=== PATIENT | female | born 1975 | race Caucasian/White ===

== ENCOUNTER 2022-07-14 10:29 | Emergency (ER) | payer OTHER ==
[2022-07-14 10:41] VITALS: RESP 18; BMI 27.4
[2022-07-14] MEDS ORDERED: ACETAMINOPHEN 1000 MG/100 ML BAG IVPB ONE (11:32)
[2022-07-14] MEDS ORDERED: ONDANSETRON 4 MG/2 ML VIAL IVPUSH ONE (11:32)
[2022-07-14] MEDS ORDERED: SODIUM CHLORIDE 0.9% 1000 ML INFUS.BAG IV ONE (11:32)
[2022-07-14] MEDS ORDERED: ACETAMINOPHEN INJECTION 100 ML IVPB ONE (11:49)
[2022-07-14] MEDS ORDERED: ONDANSETRON 4 MG/2 ML VIAL ONE (11:49)
[2022-07-14 12:45] LABS: HEMATOCRIT 44.2 % (32.4-45.2); HEMOGLOBIN 14.9 GM/dL (10.7-15.3); MCH 27.4 pg (25.7-33.7); MCHC 33.8 g/dl (32.0-36.0); MEAN CELL VOLUME 81.2 fl (80-96); MEAN PLT VOLUME 8.4 fl (7.5-11.1); PLATELET COUNT 338 10^3/uL (134-434); RBC 5.44 M/mm3 (3.60-5.2); RDW 14.9 % (11.6-15.6); WHITE BLOOD COUNT 10.1 K/mm3 (4.0-10.0)
[2022-07-14 13:06] LABS: CHLORIDE 105 mmol/L (98-107); SODIUM 136 mmol/L (136-145)
[2022-07-14 13:08] LABS: CALCIUM 9.5 mg/dL (8.5-10.1)
[2022-07-14 13:09] LABS: ALBUMIN 4.2 g/dl (3.4-5.0); BLOOD UREA NITROGEN 22.3 mg/dL (7-18); CO2 26 mmol/L (21-32); GLUCOSE,RANDOM 100 mg/dL (74-106)
[2022-07-14 13:12] LABS: SGOT/AST 171 U/L (15-37)
[2022-07-14 13:13] LABS: TOT PROT 9.3 g/dl (6.4-8.2)
[2022-07-14 13:14] LABS: BILIRUBIN,TOTAL 0.6 mg/dL (0.2-1)
[2022-07-14 13:15] LABS: ALK PHOS 95 U/L (45-117)
[2022-07-14 13:19] LABS: ANION GAP 6 MMOL/L (8-16); SGPT/ALT 69 U/L (13-61)
[2022-07-14 14:23] LABS: CALCIUM 8.1 mg/dL (8.5-10.1)
[2022-07-14 14:27] LABS: CREATININE 0.8 mg/dL (0.55-1.3)
[2022-07-14 14:52] VITALS: BP 110/68; PULSE 90; TEMP 98.5
== END 2022-07-14 14:54 | disposition home or self-care (01) ==
LOC: JER 10:29
PROC: 3E033NZ Introduction of Analgesics, Hypnotics, Sedatives into Peripheral Vein, Percutaneous Approach (ICD-10-PCS; principal; 2022-07-14)
PROC: 3E033GC Introduction of Other Therapeutic Substance into Peripheral Vein, Percutaneous Approach (ICD-10-PCS; 2022-07-14)
DX: R11.2 Nausea with vomiting, unspecified (principal); R19.7 Diarrhea, unspecified; Z20.822 Contact with and (suspected) exposure to COVID-19
CPT/HCPCS: 0241U-QW; 36415; 80048; 80053; 85027; 99284-25

== ENCOUNTER 2023-05-01 12:16 | Emergency (ER) | payer SELFPAY ==
[2023-05-01] MEDS ORDERED: ACETAMINOPHEN 500 MG TABLET (FP) PO ONE (12:48)
[2023-05-01] MEDS ORDERED: ACETAMINOPHEN 500 MG TABLET (FP) ONE (13:02)
[2023-05-01 14:20] VITALS: BP 114/70; PULSE 95; RESP 16; TEMP 99.2
== END 2023-05-01 14:28 | disposition home or self-care (01) ==
LOC: JERFT 12:16
DX: J10.1 Influenza due to other identified influenza virus with other respiratory manifestations (principal); R19.7 Diarrhea, unspecified; R50.9 Fever, unspecified; M79.10 Myalgia, unspecified site; R05.9 Cough, unspecified; R09.81 Nasal congestion; Z20.822 Contact with and (suspected) exposure to COVID-19
CPT/HCPCS: 0241U-QW; 71046-TC-FY; 99284-25